=== PATIENT | female | born 1965 | race Caucasian/White ===

== ENCOUNTER 2017-08-03 12:20 | Day surgery (SDC) | payer OTHER ==
[~2017-08-03] VITALS: Ht 160 cm; Wt 55.7 kg
[2017-08-03 13:19] VITALS: Ht 160 cm; Wt 55.7 kg
[2017-08-03] MEDS ORDERED: OMEP20CA16 PO (13:27)
[2017-08-03] MEDS ORDERED: INSULIN (13:27)
[2017-08-03] MEDS ORDERED: FER325 PO (13:27)
[2017-08-03] MEDS ORDERED: CLON-379 PO (13:27)
[2017-08-03] MEDS ORDERED: AMLO-147 PO (13:27)
[2017-08-03] MEDS ORDERED: LANT3I SC (13:27)
[2017-08-03 13:59] VITALS: BP 185/89; PULSE 82
[2017-08-03] MEDS ORDERED: PROPOFOL 20 ML ONE (15:02)
[2017-08-03] MEDS ORDERED: LIDOCAINE 2% (SDV) 5 ML INJ ONE (15:03)
--- NOTE | 2017-08-03 15:36 | OPPN ---
Date/Time of Note Date/Time of Note DATE: 08/03/17 TIME: 15:32 Proc Note GI Free Text/Dictation Procedure Date: 08/03/2017 Preoperative Diagnosis: * For cancer screening Postoperative Diagnosis: * 8 mm polyp in the distal descending colon. Snared and retrieved. * Moderate-sized internal hemorrhoids. * Otherwise normal colonoscopy to cecum Plan: * Review pathology * High-fiber diet * Annual Hemoccult stool testing * Surveillance colonoscopy in 5 years Procedure Performed: Colonoscopy with polypectomy Surgeon: Joya Salinas MD [facility] Paramedic: None Second Color Grinder: None Anesthesia/Sedation moderate sedation by anesthesiologist Tourniquet Time: NA Estimated Blood Loss: None Transfusion Required: No Specimens: Descending colon polyp Grafts/Implants: None Tubes/Drains: NA Complications: None Pt. Condition Post Procedure: Stable Disposition: Home After informed consent, with the patient/relatives understanding the procedure, its indications and potential risks and complications, including but not limited to: Allergic reaction, bleeding, perforation, infection, and after all pertinent questions were answered to the patient's satisfaction, the patient/ relatives signed the witnessed informed consent. Following this, premedication was administered slowly IV push under careful cardiovascular and respiratory monitoring with pulse OX[employer], automatic blood pressure, and pipe cleaner. Once the sedative effect was achieved, the patient was placed in the left lateral decubitus position, digital rectal examination was performed. The colonoscope was then introduced and advanced under visual control throughout all segments of the colon including: the rectum, sigmoid, descending colon, splenic flexure, transverse colon, hepatic flexure, ascending colon and finally reaching the cecum which was clearly identified by transillumination, finger indentation and the ileocecal valve. Careful examination of the mucosa of the lower gastrointestinal tract both on insertion as well as withdrawal of the instrument disclosed the following findings: PREPARATION QUALITY: [Adequate], RECTAL EXAM: The anorectal area was visualized examined and digital rectal examination performed with the following findings: No evidence of perirectal disease, no masses. COLONIC MUCOSA: The mucosa of all segments of the colon was carefully examined and showed the following findings: There is an 8 mm polyp in the distal descending colon. The polyp was snared and retrieved on withdrawal of the instrument. Otherwise the examined mucosa appears within normal limits. There is no evidence of inflammatory changes, diverticular formation, other neoplasms, vascular malformation, or any other abnormality. The instrument was then withdrawn, the patient tolerated the procedure well and was transferred out of the Endoscopy Suite awake and in good condition to continue recovery under observation. Procedure date: Aug 03, 2017 JOYA SALINAS MD Aug 03, 2017 15:36
[2017-08-03 15:55] VITALS: BP 129/82; PULSE 79; RESP 14
== END 2017-08-03 16:14 | disposition home or self-care (01) ==
LOC: GIL 12:20
PROVIDERS: ATTEND Internal Medicine Gastroenterology
DX: Z12.11 Encounter for screening for malignant neoplasm of colon (principal); D12.4 Benign neoplasm of descending colon; K64.8 Other hemorrhoids; E11.9 Type 2 diabetes mellitus without complications; I10 Essential (primary) hypertension
CPT/HCPCS: 45380; 82962; 88305; Z7610

== ENCOUNTER 2018-01-03 02:02 | Inpatient (IN) | END 2018-01-03 15:30 | disposition home or self-care (01) | DRG 639 ==

== ENCOUNTER 2018-01-19 17:22 | Emergency (ER) | END 2018-01-19 22:26 | disposition home or self-care (01) ==